=== PATIENT | female | born 1965 | race Caucasian/White ===

== ENCOUNTER 2018-07-18 18:18 | Inpatient (IN) | payer OTHER ==
[~2018-07-18] VITALS: Ht 160 cm; Wt 150.6 kg
[2018-07-18 18:23] VITALS: BP 153/86
[2018-07-18 18:57] LABS: HEMATOCRIT 42.8 % (37.0-47.0); HEMOGLOBIN 14.2 gm/dL (12.0-15.0); MCH 32.1 pg (26.0-34.0); MCHC 33.3 g/dL (28.0-37.0); MCV 96.2 fL (80.0-100.0); PLATELET COUNT 282 thou/uL (150-400); RBC 4.45 mil/uL (4.20-5.00); RDW 13.6 % (10.5-14.5); WBC 7.8 thou/uL (4.0-11.0)
[2018-07-18 19:09] LABS: ANION GAP 7 mmol/L (7-16); BUN 15 mg/dL (7-18); CALCIUM 10.2 mg/dL (8.5-10.1); CHLORIDE 103 mmol/L (98-107); CO2 29 mmol/L (21-32); CREATININE 1.2 mg/dL (0.6-1.0); GLUCOSE 100 mg/dL (74-106); POTASSIUM 4.4 mmol/L (3.5-5.1); SODIUM 139 mmol/L (136-145)
[2018-07-18 19:18] LABS: ALBUMIN 3.9 g/dL (3.4-5.0); SGOT 16 U/L (15-37); SGPT 22 U/L (30-65); TOTAL BILIRUBIN 0.4 mg/dL (<0.1-1.0); TOTAL PROTEIN 7.6 g/dL (6.4-8.2); TROPONIN-I <0.06 ng/mL (<0.06)
[2018-07-18 19:29] LABS: ABSOLUTE NEUTROPHILS 4.7 thou/uL (1.4-8.2)
[2018-07-18 22:27] VITALS: BP 131/69
[2018-07-18 22:40] VITALS: BP 131/94
[2018-07-19 04:20] VITALS: BP 118/64
--- NOTE | 2018-07-19 05:14 | NUR ---
PATIENTS CARES WERE ASSUMED AFTER TRANSFER FROM ED. PATIENT WAS ASSESSED AND PATIENT WAS ADMITTED TO THE FLOOR AND MED REC WAS DONE. PATIENT IS A SOCIAL ADMISSION. THIS LADY WOULD BE AN IDEAL SENIOR SUITES PATIENT. 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 THIS PATIENT IS BIPOLER AND IS NOT ON HER MEDS. SHE MAY ALSO BE A GOOD TRANSFER TO [facility] FOR STABILIZATION WELL. HOURLY ROUNDING WAS DONE AND PATIENT DID SLEEP THE WHOLE TIME AFTER GETTING TO THE FLOOR. THE BED IS IN A LOW AND LOCK POSITION. THE BED ALARM IS ON.
[2018-07-19 07:04] LABS: CALCIUM 9.7 mg/dL (8.5-10.1); POTASSIUM 4.3 mmol/L (3.5-5.1)
--- NOTE | 2018-07-19 08:01 | EKG ---
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 : 1965 Requested By: Jermaine Fish Order Number: [id number] MD: Brendon Rocha Measurements Intervals [place] Rate: 92 P: 62 OK: 154 QRS: 51 QRSD: 89 T: 46 QT: 372 QTc: 461 Interpretive Statements Sinus rhythm No significant abnormality No previous ECG available for comparison Electronically Signed On 07-19-2018 8:01:34 CDT by Brendon Rocha [email or web address] ��������������������������������������������� <ELECTRONICALLY SIGNED> ���������������������������������������� By: Brendon Rocha MD, [facility] ��������������������������������������������� 07/19/18 0801 [id number] 58 Brendon Rocha MD, FACC /EPI
[2018-07-19 08:23] VITALS: BP 104/44
[2018-07-19] MEDS ORDERED: ALBUTEROL2.5 MG/0.5 INH (12:54)
[2018-07-19] MEDS ORDERED: ACETAMINOPHEN325 M1 PO (12:54)
[2018-07-19 15:55] VITALS: BP 104/44
--- NOTE | 2018-07-19 15:56 | NUR ---
Assessment completed with the pt at bedside. Pt is A&ox4 and able to provide history and recent events. She reports that she moved to [facility] last year to be near her kids after her spouse . She notes that that did not work out so well as she ended up at [facility] after which she went to [facility] [place] ([place] 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 She has been arguing with them for several months about her Social Security check. She did not want to give it to them as she was trying to get an apt setup to move out on her own again. They issued her a 30 day notice for non payment and they refused to let her go to the [facility] on Tuesday so she left AMA with a friend. She went to the [facility] and says she opened a new account and put a deposit down on an apt in [place]. She can not move in for four days (July 24). She has a friend named Doroteo and she is going to try to stay with him. She does not want to go to a homeless alf but is well versed in those options and has the hotline number in her purse. She has her cell number and her laptop at bedside as well as her personal belongings. She is receptive to a cab ride this evening and would like dinner and a shower prior to leaving. [facility] Nursing to review meds with her as she states she is not on the correct medications. The pt has a hx of ethol and substance abuse. She denies any dc concerns other than a place to sleep for a couple of days. She has a w/c for mobility and is independent with transfers. Nursing updated. Cab voucher left with nursing #[id number].
[2018-07-19 16:49] VITALS: BP 104/44
--- NOTE | 2018-07-19 17:00 | NUR ---
Assumed pt care at 7am.Pt in sleeping on and off.Assessment completed.vss. Pt tolerated diet but has several discharge issues.diabetes clinical manager and Dr hernández assisting pt with where and when to go this evening.Dc order noted.Dc summary compiled and reviewed with pt.Rx obtained from outpt pharmacy and given to pt. Pt will possibly dc this evening but not sure as pt changes mind often.Will continue to monitor.
[2018-07-19 22:47] VITALS: BP 139/66
--- NOTE | 2018-07-20 | NUR ---
DISCHARGE PAPERS SIGNED BY PT WITH BOTH DAY AND NIGHT RN'S PRESENT. ATTEMPTED TO GIVE PT THE CAB VOUCHER, BUT SHE STATED SHE HAD ALREADY CALLED A FRIEND TO PICK HER UP AND HE WAS TWO HOURS AWAY. CHECKED BACK IN WITH PT AT 2100, ASKED HER TO CALL AGAIN AND FIND OUT HOW FAR AWAY THE FRIEND WAS; SHE SAID HE [place] AND WOULD BE AWHILE. PT WANTED TO TAKE THE CAB VOUCHER BUT WAS UNABLE TO PROVIDE AN ADDRESS TO GO TO; [employer]IERY SPOKE WITH PT, NO BEDS AVAILABLE AT [facility]. PT TO STAY OVERNIGHT AND WORK WITH CM IN AM TO DISCHARGE EARLY POSSIBLE. COMPLETED ASSESSMENT, VS, AND BLOOD SUGAR; PT NOW SLEEPING IN ROOM.
[2018-07-20 08:30] VITALS: BP 118/60
--- NOTE | 2018-07-20 11:39 | NUR ---
Pt in bed sleping on and off.Dangle at bs for breakfast.Good appetite.Dr Berg here and he told both the rn and keycase assembler to assist pt in dc today to any of the [facility]dc.Around 11 am,pt cam out in wc c/o soa.O2 given at 3lnc and resp.therapist called and breathing treatment given.Will continue to monitor.
[2018-07-20 14:10] VITALS: BP 104/44
--- NOTE | 2018-07-20 14:42 | NUR ---
Following for d/c planning needs. Spoke with pt about 1300 today. She said she planned on calling [facility] at 1330 to see if they would be able to assist her with motel payment. Pt said she did not pay [facility] while she was there, as she did not receive the care she thought she needed. Pt said she was told that she would not be able to return if she left to go to the bank. Pt is evasive about answering questions re: apartment. She said it is "[place]" something. Then asked why CM needed to know. Pt said she opened the account at [employer] on Tuesday and the funds would not be available until Tuesday, 07/24. Pt said she has not paid the rent at the apartment and was unable to provide name. Called pt's friend Doroteo and he said his mother is staying with him and he does not have a place for pt to stay. Called [facility] and they have a bed available. Check-in for homeless half-way is between [phone] today. Went back to pt's room at 1400 and she said [employer] ([phone]) was not able to help her with funding a motel room until she found housing. Told pt that [facility] has bed available and would be able to accept her. Pt said it is not a good place to stay and explained to pt that she has been discharged from hospital. Pt is reluctantly agreeable to go to [facility]. Called [facility] and they will provide w/c van transportation at 1530 today. RN aware of d/c plans. No other needs identified.
== END 2018-07-20 15:30 | disposition home or self-care (01) | DRG 191 ==
LOC: ER 18:18 → 4E 21:23 → EROBS 21:23 → 4E 22:18
PROVIDERS: Nurse Practitioner Family; Physician Assistant; ADMIT Internal Medicine
DX: J44.9 Chronic obstructive pulmonary disease, unspecified (principal); Z68.43 Body mass index [BMI] 50.0-59.9, adult; E11.9 Type 2 diabetes mellitus without complications; E66.01 Morbid (severe) obesity due to excess calories; F17.210 Nicotine dependence, cigarettes, uncomplicated; Z88.6 Allergy status to analgesic agent; Z88.2 Allergy status to sulfonamides; Z88.8 Allergy status to other drugs, medicaments and biological substances; Z99.3 Dependence on wheelchair
CPT/HCPCS: 10084